=== PATIENT | male | born 1995 | race Caucasian/White ===

== ENCOUNTER 2017-10-27 08:03 | Emergency (ER) | payer OTHER ==
[~2017-10-27] VITALS: Ht 182.9 cm; Wt 117.2 kg
[2017-10-27 10:04] VITALS: BP 128/80
== END 2017-10-27 10:04 | disposition home or self-care (01) ==
LOC: ED 08:03
DX: J06.9 Acute upper respiratory infection, unspecified (principal); I10 Essential (primary) hypertension

== ENCOUNTER 2017-12-11 08:40 | Emergency (ER) | payer OTHER ==
[~2017-12-11] VITALS: Ht 182.9 cm; Wt 117.5 kg
[2017-12-11 08:41] VITALS: Ht 182.9 cm; Wt 117.5 kg
[2017-12-11 09:28] VITALS: BP 140/73
== END 2017-12-11 09:28 | disposition home or self-care (01) ==
LOC: ED 08:40
DX: J02.9 Acute pharyngitis, unspecified (principal); I10 Essential (primary) hypertension
CPT/HCPCS: J0561; J1885

== ENCOUNTER 2018-04-11 10:03 | Emergency (ER) | payer OTHER ==
[~2018-04-11] VITALS: Ht 182.9 cm; Wt 119.3 kg
[2018-04-11 10:13] VITALS: Ht 182.9 cm; Wt 119.3 kg
[2018-04-11 11:00] VITALS: BP 131/65
== END 2018-04-11 11:00 | disposition home or self-care (01) ==
LOC: ED 10:03
DX: B97.7 Papillomavirus as the cause of diseases classified elsewhere (principal); Z76.0 Encounter for issue of repeat prescription; I10 Essential (primary) hypertension

== ENCOUNTER 2018-06-06 22:50 | Emergency (ER) | payer OTHER ==
[~2018-06-06] VITALS: Ht 180.3 cm; Wt 118.4 kg
[2018-06-06 22:55] VITALS: Ht 180.3 cm; Wt 118.4 kg
[2018-06-07 00:01] LABS: BASOPHIL % 0.5 % (0-2); PLATELET COUNT 272 x10^3mcL (130-400); RED CELL DISTRIBUTION WIDTH 12.1 % (11.5-14.5)
[2018-06-07 00:14] LABS: CALCIUM 8.1 mg/dL (8.5-10.1); CARBON DIOXIDE 25.3 mmol/L (21-32); CHLORIDE SERUM 106 mmol/L (98-107); CREATININE SERUM 1.1 mg/dL (0.7-1.3); GFR1 > 60 mL/min; GLUCOSE SERUM 100 mg/dL (74-106); POTASSIUM SERUM 3.5 mmol/L (3.5-5.1); SODIUM SERUM 142 mmol/L (136-145)
[2018-06-07 00:18] LABS: ALBUMIN 3.6 g/dL (3.4-5.0); ALKALINE PHOSPHATASE 80 U/L (46-116); ALT/SGPT 20 U/L (16-63); AST/SGOT 20 U/L (15-37); BILIRUBIN TOTAL 0.3 mg/dL (0.20-1.00); LIPASE 108 IU/L (73-393); TOTAL PROTEIN, SERUM 6.9 g/dL (6.4-8.2)
[2018-06-07 00:22] LABS: AMYLASE 24 U/L (25-115)
[2018-06-07 02:04] VITALS: BP 126/60
== END 2018-06-07 02:04 | disposition home or self-care (01) ==
LOC: ED 22:50
PROVIDERS: Emergency Medicine
DX: I88.0 Nonspecific mesenteric lymphadenitis (principal); K59.00 Constipation, unspecified; I10 Essential (primary) hypertension
CPT/HCPCS: 83880; J1885; J2765; J3010

== ENCOUNTER 2018-12-06 07:25 | Emergency (ER) | payer OTHER, MEDICAID ==
[~2018-12-06] VITALS: Ht 182.9 cm; Wt 120.2 kg
[2018-12-06 07:43] VITALS: BP 134/74; Ht 182.9 cm; Wt 120.2 kg
== END 2018-12-06 09:40 | disposition home or self-care (01) ==
LOC: ED 07:25
DX: J11.1 Influenza due to unidentified influenza virus with other respiratory manifestations (principal); I10 Essential (primary) hypertension
CPT/HCPCS: Q0092

== ENCOUNTER 2019-01-04 07:00 | Emergency (ER) | payer OTHER, MEDICAID ==
[~2019-01-04] VITALS: Ht 182.9 cm; Wt 121.1 kg
[2019-01-04 07:05] VITALS: Ht 182.9 cm; Wt 121.1 kg
[2019-01-04 08:26] VITALS: BP 138/67
== END 2019-01-04 08:26 | disposition home or self-care (01) ==
LOC: ED 07:00
DX: J98.01 Acute bronchospasm (principal); B34.9 Viral infection, unspecified; I10 Essential (primary) hypertension
CPT/HCPCS: 87804; J7512; J7613; J7644

== ENCOUNTER 2019-05-31 16:36 | Emergency (ER) | payer OTHER, MEDICAID ==
[~2019-05-31] VITALS: Ht 182.9 cm; Wt 125.6 kg
[2019-05-31 16:49] VITALS: Ht 182.9 cm; Wt 125.6 kg
[2019-05-31 17:23] LABS: BASOPHIL % 0.8 % (0-2); PLATELET COUNT 273 x10^3mcL (130-400)
[2019-05-31 17:29] LABS: CALCIUM 8.9 mg/dL (8.5-10.1); CARBON DIOXIDE 28.8 mmol/L (21-32); CHLORIDE SERUM 105 mmol/L (98-107); GFR1 > 60 mL/min; GLUCOSE SERUM 104 mg/dL (74-106); POTASSIUM SERUM 4.1 mmol/L (3.5-5.1); SODIUM SERUM 140 mmol/L (136-145)
[2019-05-31 17:34] LABS: ALBUMIN 3.9 g/dL (3.4-5.0); ALKALINE PHOSPHATASE 65 U/L (46-116); ALT/SGPT 30 U/L (16-63); AMYLASE 31 U/L (25-115); AST/SGOT 18 U/L (15-37); BILIRUBIN TOTAL 0.3 mg/dL (0.20-1.00); LIPASE 104 IU/L (73-393)
[2019-05-31 19:10] VITALS: BP 120/57
== END 2019-05-31 19:19 | disposition home or self-care (01) ==
LOC: ED 16:36
PROVIDERS: Emergency Medicine
DX: R10.31 Right lower quadrant pain (principal); R11.10 Vomiting, unspecified; I10 Essential (primary) hypertension
CPT/HCPCS: J1885; J2405; J3010; J7030; Q9967

== ENCOUNTER 2019-06-01 08:08 | Emergency (ER) | payer OTHER, MEDICAID ==
[~2019-06-01] VITALS: Ht 182.9 cm; Wt 126.1 kg
[2019-06-01 08:13] VITALS: Ht 182.9 cm; Wt 126.1 kg
[2019-06-01 08:48] LABS: BASOPHIL % 0.7 % (0-2); PLATELET COUNT 239 x10^3mcL (130-400); RED CELL DISTRIBUTION WIDTH 12.1 % (11.5-14.5)
[2019-06-01 08:58] LABS: CALCIUM 8.7 mg/dL (8.5-10.1); CARBON DIOXIDE 25.4 mmol/L (21-32); CHLORIDE SERUM 108 mmol/L (98-107); GFR1 > 60 mL/min; GLUCOSE SERUM 101 mg/dL (74-106); POTASSIUM SERUM 4.1 mmol/L (3.5-5.1); SODIUM SERUM 144 mmol/L (136-145)
[2019-06-01 09:02] LABS: ALBUMIN 3.5 g/dL (3.4-5.0); ALKALINE PHOSPHATASE 61 U/L (46-116); ALT/SGPT 25 U/L (16-63); AST/SGOT 11 U/L (15-37); BILIRUBIN TOTAL 0.32 mg/dL (0.20-1.00); LIPASE 89 IU/L (73-393); TOTAL PROTEIN, SERUM 6.5 g/dL (6.4-8.2)
[2019-06-01 10:22] VITALS: BP 114/59
== END 2019-06-01 10:22 | disposition home or self-care (01) ==
LOC: ED 08:08
PROVIDERS: Emergency Medicine
DX: R10.30 Lower abdominal pain, unspecified (principal); I10 Essential (primary) hypertension
CPT/HCPCS: J1885; J2270; Q9967

== ENCOUNTER 2019-08-12 08:38 | Emergency (ER) | payer OTHER, MEDICAID ==
[~2019-08-12] VITALS: Ht 180.3 cm; Wt 121.6 kg
[2019-08-12 08:46] VITALS: Ht 180.3 cm; Wt 121.6 kg
[2019-08-12 11:31] VITALS: BP 118/64
== END 2019-08-12 11:31 | disposition home or self-care (01) ==
LOC: ED 08:38
DX: J02.9 Acute pharyngitis, unspecified (principal); I10 Essential (primary) hypertension; R51 Headache
CPT/HCPCS: J1885

== ENCOUNTER 2019-12-07 07:46 | Emergency (ER) | payer OTHER, MEDICAID ==
[~2019-12-07] VITALS: Ht 182.9 cm; Wt 126.1 kg
[2019-12-07 08:02] VITALS: Ht 182.9 cm; Wt 126.1 kg
[2019-12-07 11:24] VITALS: BP 132/70
== END 2019-12-07 11:24 | disposition home or self-care (01) ==
LOC: ED 07:46
DX: B34.9 Viral infection, unspecified (principal); I10 Essential (primary) hypertension; Z98.890 Other specified postprocedural states
CPT/HCPCS: 87804

== ENCOUNTER 2020-03-05 10:51 | Emergency (ER) | payer OTHER, MEDICAID ==
[~2020-03-05] VITALS: Ht 182.9 cm; Wt 124.7 kg
[2020-03-05 11:01] VITALS: Ht 182.9 cm; Wt 124.7 kg
[2020-03-05 11:27] LABS: BASOPHIL % 0.5 % (0-2); PLATELET COUNT 295 x10^3mcL (130-400); RED CELL DISTRIBUTION WIDTH 12.3 % (11.5-14.5)
[2020-03-05 11:37] LABS: CARBON DIOXIDE 28.8 mmol/L (21-32); CHLORIDE SERUM 104 mmol/L (98-107); GFR1 > 60 mL/min; GLUCOSE SERUM 99 mg/dL (74-106); SODIUM SERUM 141 mmol/L (136-145)
[2020-03-05 11:39] LABS: ALBUMIN 3.8 g/dL (3.4-5.0); ALKALINE PHOSPHATASE 56 U/L (46-116); ALT/SGPT 31 U/L (16-63); AST/SGOT 13 U/L (15-37); BILIRUBIN TOTAL 0.6 mg/dL (0.20-1.00); LIPASE 98 IU/L (73-393); MAGNESIUM 1.7 mg/dL (1.8-2.4); PHOSPHOROUS 2.6 mg/dL (2.5-4.9); TOTAL PROTEIN, SERUM 6.8 g/dL (6.4-8.2)
[2020-03-05 11:47] LABS: microscopic required? NO
[2020-03-05 11:58] LABS: urine erythrocyte NEGATIVE (NEGATIVE)
[2020-03-05 13:32] VITALS: BP 118/52
== END 2020-03-05 13:32 | disposition home or self-care (01) ==
LOC: ED 10:51
PROVIDERS: Emergency Medicine
DX: K52.9 Noninfective gastroenteritis and colitis, unspecified (principal); I10 Essential (primary) hypertension
CPT/HCPCS: C9113; J2405; J2765; J7030; Q0092

== ENCOUNTER 2020-06-02 13:09 | Emergency (ER) | payer OTHER, MEDICAID ==
[~2020-06-02] VITALS: Ht 177.8 cm; Wt 99.8 kg
[~2020-06-02 13:09] MED LIST: CARBATROL300 MG PO; DECADRON4 MG PO; LEVAQUIN500 M1 PO; TYL325 PO
[2020-06-02 16:13] LABS: microscopic required? NO
[2020-06-02 16:30] VITALS: Ht 177.8 cm; Wt 99.8 kg
[2020-06-02 16:33] LABS: UA SPECIFIC GRAVITY >=1.030 (1.005-1.035); urine erythrocyte NEGATIVE (NEGATIVE)
[2020-06-02 16:35] LABS: BASOPHIL % 0.7 % (0-2); PLATELET COUNT 375 x10^3mcL (130-400); RED CELL DISTRIBUTION WIDTH 12.3 % (11.5-14.5)
[2020-06-02 16:46] LABS: CALCIUM 9.1 mg/dL (8.5-10.1); CARBON DIOXIDE 23.5 mmol/L (21-32); CHLORIDE SERUM 99 mmol/L (98-107); CREATININE SERUM 1.1 mg/dL (0.7-1.3); GFR1 > 60 mL/min; GLUCOSE SERUM 103 mg/dL (74-106); POTASSIUM SERUM 3.8 mmol/L (3.5-5.1); SODIUM SERUM 135 mmol/L (136-145)
[2020-06-02 16:52] LABS: ALBUMIN 4.2 g/dL (3.4-5.0); ALKALINE PHOSPHATASE 69 U/L (46-116); ALT/SGPT 55 U/L (16-63); AST/SGOT 15 U/L (15-37); BILIRUBIN TOTAL 0.39 mg/dL (0.20-1.00); LACTIC DEHYDROGENASE (LDH) 216 U/L (100-190); TOTAL PROTEIN, SERUM 7.9 g/dL (6.4-8.2)
[2020-06-02 19:00] VITALS: BP 135/82
[2020-06-02 19:10] LABS: C REACTIVE PROTEIN < 0.2 mg/dL (<=0.9)
== END 2020-06-02 19:00 | disposition home or self-care (01) ==
LOC: ED 13:09
PROVIDERS: Emergency Medicine
DX: F41.9 Anxiety disorder, unspecified (principal); R06.4 Hyperventilation; Z20.828 Contact with and (suspected) exposure to other viral communicable diseases
CPT/HCPCS: 36600; 83880; 85378; 87804; J0456; J0696; Q0092

== ENCOUNTER 2020-06-14 16:32 | Emergency (ER) | payer OTHER, MEDICAID ==
[~2020-06-14] VITALS: Ht 182.9 cm; Wt 124.3 kg
[2020-06-14 16:40] VITALS: Ht 182.9 cm; Wt 124.3 kg
[2020-06-14 18:20] VITALS: BP 144/84
== END 2020-06-14 18:20 | disposition home or self-care (01) ==
LOC: ED 16:32
DX: T78.1XXA Other adverse food reactions, not elsewhere classified, initial encounter (principal); Z98.890 Other specified postprocedural states; X58.XXXA Exposure to other specified factors, initial encounter
CPT/HCPCS: J2930

== ENCOUNTER 2020-10-11 12:05 | Emergency (ER) | payer OTHER, MEDICAID ==
[~2020-10-11] VITALS: Ht 180.3 cm; Wt 102.1 kg
[2020-10-11 13:19] VITALS: Ht 180.3 cm; Wt 102.1 kg
[2020-10-11 15:04] VITALS: BP 130/58
== END 2020-10-11 15:34 | disposition home or self-care (01) ==
LOC: ED 12:05
DX: S93.401A Sprain of unspecified ligament of right ankle, initial encounter (principal); X58.XXXA Exposure to other specified factors, initial encounter; Y93.89 Activity, other specified; Y92.89 Other specified places as the place of occurrence of the external cause; Y99.8 Other external cause status
CPT/HCPCS: J1885